=== PATIENT | male | born 1985 | race African-American/Black ===

== ENCOUNTER → 2020-01-20 | Emergency (ER) | payer OTHER ==
[~2020-01-20] VITALS: Ht 175.3 cm; Wt 70.3 kg
[2020-01-20 10:10] VITALS: BP 121/80
--- NOTE | 2020-01-20 10:15 | NUR ---
PT SEEN AND EXAMINED BY .
--- NOTE | 2020-01-20 10:18 | NUR ---
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
--- NOTE | 2020-01-20 10:51 | NUR ---
Dc home instruction given agrees to see PMD in 2days .
== END | disposition home or self-care (01) ==
LOC: ER 10:11
DX: S43.101A Unspecified dislocation of right acromioclavicular joint, initial encounter (principal); V49.49XA Driver injured in collision with other motor vehicles in traffic accident, initial encounter; Y93.89 Activity, other specified; Y92.488 Other paved roadways as the place of occurrence of the external cause; Y99.8 Other external cause status
CPT/HCPCS: 73030-TC

== ENCOUNTER 2020-01-22 19:18 | Emergency (ER) | payer BC, OTHER ==
[~2020-01-22] VITALS: Ht 172.7 cm; Wt 70.3 kg
--- NOTE | 2020-01-22 20:49 | NUR ---
Patient discharged to home in stable condition. Written and verbal after care instructions given. Patient verbalizes understanding of instruction. pt [id number] no acute distress noted, resp even and unlabored. ambulatory with a steady gait
[2020-01-22 20:50] VITALS: BP 137/68
== END 2020-01-22 20:51 | disposition home or self-care (01) ==
LOC: ER 19:21
DX: S20.212A Contusion of left front wall of thorax, initial encounter (principal); S00.81XA Abrasion of other part of head, initial encounter; V49.49XA Driver injured in collision with other motor vehicles in traffic accident, initial encounter; Y93.89 Activity, other specified; Y92.413 State road as the place of occurrence of the external cause; Y99.8 Other external cause status
CPT/HCPCS: 70450-TC; 71100-TC; 72125-TC